=== PATIENT | female | born 1955 | race Caucasian/White ===

== ENCOUNTER 2019-11-28 16:15 | Emergency (ER) | payer MEDICARE, OTHER ==
[~2019-11-28] VITALS: Ht 167.6 cm; Wt 89.8 kg
--- NOTE | 2019-11-28 16:15 | NUR ---
PT BIBRA 39 FROM HOME C/O RAPID HEART RATE AROUND 180'S. 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 KEPT RESTED AND COMFORTABLE. WILL CONTINUE TO MONITOR.
--- NOTE | 2019-11-28 16:16 | NUR ---
AT BEDSIDE FOR EVAL.
[2019-11-28] MEDS ORDERED: DILTIAZEM HCL 25 MG IV ONE (16:18)
--- NOTE | 2019-11-28 16:19 | NUR ---
DILTIAZEM 15MG IVP GIVEN PER .
--- NOTE | 2019-11-28 16:20 | NUR ---
PT LATEST HEART RATE 103 BPM AFTER DILTIAZEM 15 IVP.
--- NOTE | 2019-11-28 16:25 | NUR ---
DIET CONSULTANT AT BEDSIDE FOR XRAY.
[2019-11-28] MEDS ORDERED: DILTIAZEM HCL 50 MG IV IV ONE (16:30)
[2019-11-28] MEDS ORDERED: IV NS 0.9% 1,000 ML BAG IV ONE (16:30)
--- NOTE | 2019-11-28 16:30 | NUR ---
ER PHLEB AT BEDSIDE FOR BLOOD DRAW.
[2019-11-28 16:50] LABS: BASOPHILS % (AUTO) 0.4 % (0.0-2.0); EOSINOPHILS % (AUTO) 1.4 % (0.0-6.0); HEMATOCRIT 31 % (33-45); HEMOGLOBIN 10.2 g/dL (11.5-14.8); LYMPHOCYTES % (AUTO) 24.9 % (20.0-44.0); MEAN CORPUSCULAR HGB CONC 33 g/dl (31.0-36.0); MEAN CORPUSCULAR VOLUME 90 fL (82-100); MONOCYTES # (AUTO) 0.2 /CMM (0.1-1.30); MONOCYTES % (AUTO) 5.5 % (2.0-12.0); NEUTROPHILS # (AUTO) 2.6 /CMM (1.8-8.9); NEUTROPHILS % (AUTO) 67.8 % (43.0-81.0); PLATELET COUNT (AUTO) 144 /CMM (150-450); RED BLOOD CELL COUNT(AUTO) 3.41 MIL/uL (4.0-5.2); WHITE BLOOD COUNT (AUTO) 3.8 K/uL (4.3-11.0)
[2019-11-28 16:51] LABS: CALCIUM, SERUM 8.2 mg/dL (8.5-10.1); CARBON DIOXIDE 24 mmol/L (21-32); CHLORIDE 103 mmol/L (98-107); CREATININE 1.1 mg/dL (0.6-1.3); GLUCOSE 230 mg/dL (74-106); POTASSIUM 3.9 mmol/L (3.5-5.1); SODIUM SERUM 138 mmol/L (136-145); UREA NITROGEN, BLOOD 9 mg/dL (7-18)
--- NOTE | 2019-11-28 17:23 | NUR ---
IV removed. Catheter intact and site benign. Pressure and 4x4 applied to site. No bleeding noted. Patient discharged to home in stable condition. Written and verbal after care instructions given. Patient verbalizes understanding of instruction.
[2019-11-28 17:24] VITALS: BP 125/72
[2019-11-28] MEDS ORDERED: SIMV-49 PO (17:24)
[2019-11-28] MEDS ORDERED: MECL-159 PO (17:24)
[2019-11-28] MEDS ORDERED: ERGO500014 PO (17:24)
[2019-11-28] MEDS ORDERED: ALEN70TA6 PO (17:24)
[2019-11-28] MEDS ORDERED: LINA1TAB7 PO (17:24)
[2019-11-28] MEDS ORDERED: HYDR-500 PO (17:24)
[2019-11-28] MEDS ORDERED: LOSA50TA39 PO (17:24)
[2019-11-28] MEDS ORDERED: GLIM4TAB37 PO (17:24)
[2019-11-28] MEDS ORDERED: FENO145T21 PO (17:24)
[2019-11-28] MEDS ORDERED: ASPI-1420 PO (17:24)
[2019-11-28] MEDS ORDERED: HYDR12.55 PO (17:24)
[2019-11-28] MEDS ORDERED: CALC500T52 PO (17:24)
[2019-11-28] MEDS ORDERED: FERR325T24 PO (17:24)
[2019-11-28] MEDS ORDERED: IBUP-1955 PO (17:24)
[2019-11-28] MEDS ORDERED: DEXL60CA3 PO (17:24)
[2019-11-28] MEDS ORDERED: AZIT250T13 PO (17:25)
== END 2019-11-28 17:24 | disposition home or self-care (01) ==
LOC: ER 16:30
DX: I47.1 Supraventricular tachycardia (principal); I10 Essential (primary) hypertension; Z88.1 Allergy status to other antibiotic agents; Z88.0 Allergy status to penicillin
CPT/HCPCS: 36415; 71045; 80048; 84484; 85025; 93005; 96361; 96374; 99285; J3490; J7030

== ENCOUNTER 2021-09-12 13:42 | Emergency (ER) | payer MEDICARE, OTHER ==
[~2021-09-12] VITALS: Ht 167.6 cm; Wt 77.1 kg
[~2021-09-12 13:42] MED LIST: ALEN70TA80 PO; ASPI-1420 PO; AZIT250T13 PO; CALC500T52 PO; DEXL60CA3 PO; ERGO500093 PO; FENO145T21 PO; FERR325T24 PO; GLIM4TAB37 PO; HYDR-500 PO; HYDR12.55 PO; IBUP-1955 PO; LINA1TAB7 PO; LOSA50TA39 PO; MECL-159 PO; SIMV-49 PO
[2021-09-12 13:48] VITALS: BP 129/70
[2021-09-12] MEDS ORDERED: KETOROLAC TROMETHAMINE INJ 60 MG/2 ML VIAL IM ONE (15:00)
[2021-09-12] MEDS ORDERED: KETOROLAC TROMETHAMINE INJ 30 MG/ML VIAL ONE (15:20)
[2021-09-12] MEDS ORDERED: IBUP-1953 PO (15:57)
[2021-09-12] MEDS ORDERED: NAPR-1009 PO (15:58)
--- NOTE | 2021-09-12 17:06 | NUR ---
Patient discharged to home in stable condition. Written and verbal after care instructions given. Patient verbalizes understanding of instruction.
== END 2021-09-12 17:07 | disposition home or self-care (01) ==
LOC: ER 13:44
DX: R07.89 Other chest pain (principal); I10 Essential (primary) hypertension; E11.9 Type 2 diabetes mellitus without complications; Z88.1 Allergy status to other antibiotic agents; Z88.0 Allergy status to penicillin; Z79.899 Other long term (current) drug therapy; Z79.82 Long term (current) use of aspirin
CPT/HCPCS: 99283; 96372; 71100; J1885